=== PATIENT | male | born 1960 | race Caucasian/White ===

== ENCOUNTER 2019-03-27 16:53 | Emergency (ER) | payer OTHER ==
[2019-03-27 17:05] VITALS: RESP 18
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
[2019-03-27 18:06] LABS: Basophils % (A) 0 %; Eosinophils # (A) 0.1 k/uL (0-0.7); Eosinophils % (A) 1 %; HGB 16.1 gm/dL (13.0-17.5); Lymphocytes # (A) 1.5 k/uL (1.0-4.8); Lymphocytes % (A) 22 %; MCH 29.6 pg (25.0-35.0); MCHC 33.6 g/dL (31.0-37.0); MCV 88.1 fL (80.0-100.0); Monocytes # (A) 0.4 k/uL (0-1.0); Monocytes % (A) 5 %; Neutrophils # (A) 4.9 k/uL (1.3-7.7); Neutrophils % (A) 70 %; Platelet Count 147 k/uL (150-450); RBC 5.44 m/uL (4.30-5.90); RDW 12.9 % (11.5-15.5); WBC 7.1 k/uL (3.8-10.6)
[2019-03-27 18:23] LABS: INR 0.9 (<1.2); Partial Thromboplastin Time 25.4 sec (22.0-30.0); Prothrombin Time 9.8 sec (9.0-12.0)
--- NOTE | 2019-03-27 18:23 | XR ---
EXAMINATION TYPE: XR chest 1V portable DATE OF EXAM: 03/27/2019 COMPARISON: 12/14/2015 HISTORY: Pain TECHNIQUE: Single frontal view of the chest is obtained. FINDINGS: Heart and mediastinum are normal. Lungs are clear. Diaphragm is normal. Bony thorax appear s normal. IMPRESSION: Normal chest. No change.
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
--- NOTE | 2019-03-27 18:26 | XR ---
EXAMINATION TYPE: XR hand complete RT DATE OF EXAM: 03/27/2019 COMPARISON: NONE HISTORY: Hand pain TECHNIQUE: 3 views FINDINGS: Metacarpals are intact. I see no fracture nor dislocation. Joint spaces are normal. IMPRESSION: Negative right hand exam.
[2019-03-27 18:27] LABS: ALT 48 U/L (21-72); AST 37 U/L (17-59); Albumin 4.1 g/dL (3.5-5.0); Alcohol <10 mg/dL; Alkaline Phosphatase 59 U/L (38-126); Anion Gap 8 mmol/L; Blood Urea Nitrogen 20 mg/dL (9-20); Calcium 9.6 mg/dL (8.4-10.2); Carbon Dioxide 23 mmol/L (22-30); Chloride 109 mmol/L (98-107); Glucose 114 mg/dL (74-99); Lipase 258 U/L (23-300); Potassium 4.4 mmol/L (3.5-5.1); Sodium 140 mmol/L (137-145); Total Bilirubin 0.6 mg/dL (0.2-1.3); Total Protein 6.9 g/dL (6.3-8.2)
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
--- NOTE | 2019-03-27 18:37 | XR ---
EXAMINATION TYPE: XR pelvis AP view DATE OF EXAM: 03/27/2019 COMPARISON: NONE HISTORY: Pain TECHNIQUE: Single view FINDINGS: The pelvic ring is intact. Proximal femurs are intact. There is contrast in the urinary cisco dder. Sacroiliac joints appear intact. IMPRESSION: Normal pelvis.
--- NOTE | 2019-03-27 18:38 | XR ---
EXAMINATION TYPE: XR knee complete LT DATE OF EXAM: 03/27/2019 COMPARISON: NONE HISTORY: Knee pain TECHNIQUE: 3 views FINDINGS: I see no fracture nor dislocation. Joint spaces are normal. There is no sign of joint effus ion. IMPRESSION: Negative left knee exam.
[2019-03-27 19:48] VITALS: BP 131/81; PULSE 70; TEMP 98.6
== END 2019-03-27 19:47 | disposition home or self-care (01) ==
LOC: EC 16:53
DX: Z04.1 Encounter for examination and observation following transport accident (principal); N28.89 Other specified disorders of kidney and ureter; E11.9 Type 2 diabetes mellitus without complications; E78.5 Hyperlipidemia, unspecified; I10 Essential (primary) hypertension; M19.90 Unspecified osteoarthritis, unspecified site; N42.9 Disorder of prostate, unspecified; Z87.891 Personal history of nicotine dependence; Z79.84 Long term (current) use of oral hypoglycemic drugs; Z79.899 Other long term (current) drug therapy; Z88.0 Allergy status to penicillin; Z88.2 Allergy status to sulfonamides; V43.52XA Car driver injured in collision with other type car in traffic accident, initial encounter; Y92.410 Unspecified street and highway as the place of occurrence of the external cause
CPT/HCPCS: 36415; 86900; 86901; 80053; 83690; 84484; 85025; 85610; 85730; 86850; 80320; 72170; 73130; 73562; 71045; 72125; 70450; 71260; 74177; 99284; Q9967

== ENCOUNTER 2019-04-16 11:41 | Inpatient (IN) | payer OTHER ==
[2019-04-16] MEDS ORDERED: SODIUM CHLORIDE 0.9% 1,000 ML IV STA ×2 (11:53)
--- NOTE | 2019-04-16 11:54 | ED ---
Neuro HPI - General Chief Complaint: Neuro Symptoms/Deficit Stated Complaint: Confused Time Seen by Provider: 04/16/19 11:53 Source: patient, RN notes reviewed, old records reviewed Mode of arrival: ambulatory Limitations: no limitations - History of Present Illness Is the patient presenting with stroke symptoms?: Yes Last Known Well Date: 04/16/19 Last Known Well Time: 07:00 -: hour(s) (5) Location: speech, right arm Place: work Severity: severe Quality: other (Worsening) Improves With: none Worsens With: time On Anticoagulants: No Context: sudden onset (Worsening) Associated Symptoms: denies other symptoms Treatments Prior to Arrival: none - Related Data Home Medications: Home Medications Medication Instructions Recorded Confirmed Allopurinol [Zyloprim] 100 mg PO DAILY 06/17/16 04/16/19 Cholecalciferol [Vitamin D3 (25 5,000 unit PO HS 06/17/16 04/16/19 Mcg = 1000 Iu)] Montelukast [Singulair] 10 mg PO HS 06/17/16 04/16/19 Lisinopril-Hctz 20-12.5 mg 1 tab PO HS 03/27/19 04/16/19 [Zestoretic 20-12.5] Lovastatin [Mevacor] 40 mg PO DAILY 03/27/19 04/16/19 glipiZIDE [Glucotrol] 10 mg PO TID 03/27/19 04/16/19 Naproxen Sodium [Aleve] 220 mg PO BID PRN 04/16/19 04/16/19 Vortioxetine Hydrobromide 10 mg PO DAILY 04/16/19 04/16/19 [Trintellix] Allergies/Adverse Reactions: Allergies Allergy/AdvReac Type Severity Reaction Status Date / Time Penicillins Allergy Anaphylaxis Verified 04/16/19 12:18 Sulfa (Sulfonamide Allergy Swelling Verified 04/16/19 12:18 Antibiotics) Review of Systems ROS Statement: Those systems with pertinent positive or pertinent negative responses have been documented in the HPI. ROS Other: All systems not noted in ROS Statement are negative. General Exam Limitations: no limitations Stroke MDM - Lab Data Result diagrams: 04/16/19 12:13 04/16/19 12:13 Lab Results 04/16/19 04/16/19 04/16/19 Range/Units 12:13 12:13 12:13 WBC 7.7 (3.8-10.6) k/uL RBC 5.49 (4.30-5.90) m/uL Hgb 16.0 (13.0-17.5) gm/dL Hct 48.3 (39.0-53.0) % MCV 88.0 (80.0-100.0) fL MCH 29.2 (25.0-35.0) pg MCHC 33.2 (31.0-37.0) g/dL RDW 13.7 (11.5-15.5) % Plt Count 150 (150-450) k/uL Neutrophils % 61 % Lymphocytes % 30 % Monocytes % 5 % Eosinophils % 2 % Basophils % 1 % Neutrophils # 4.7 (1.3-7.7) k/uL Lymphocytes # 2.3 (1.0-4.8) k/uL Monocytes # 0.4 (0-1.0) k/uL Eosinophils # 0.1 (0-0.7) k/uL Basophils # 0.0 (0-0.2) k/uL PT (9.0-12.0) sec INR (<1.2) APTT (22.0-30.0) sec Sodium 140 (137-145) mmol/L Potassium 4.3 (3.5-5.1) mmol/L Chloride 108 H (98-107) mmol/L Carbon Dioxide 27 (22-30) mmol/L Anion Gap 5 mmol/L BUN 20 (9-20) mg/dL Creatinine 0.81 (0.66-1.25) mg/dL Est GFR (CKD-EPI)AfAm >90 (>60 ml/min/1.73 sqM) Est GFR (CKD-EPI)NonAf >90 (>60 ml/min/1.73 sqM) Glucose 97 (74-99) mg/dL POC Glucose (mg/dL) (75-99) mg/dL POC Glu Engineer Technician ID Calcium 9.4 (8.4-10.2) mg/dL Total Bilirubin 0.6 (0.2-1.3) mg/dL AST 56 (17-59) U/L ALT 58 (21-72) U/L Alkaline Phosphatase 65 (38-126) U/L Total Creatine Kinase 507 H (55-170) U/L CK-MB (CK-2) 9.1 H (0.0-2.4) ng/mL CK-MB (CK-2) Rel Index 1.8 Troponin I <0.012 (0.000-0.034) ng/mL Total Protein 7.0 (6.3-8.2) g/dL Albumin 4.2 (3.5-5.0) g/dL 04/16/19 04/16/19 Range/Units 12:13 12:15 WBC (3.8-10.6) k/uL RBC (4.30-5.90) m/uL Hgb (13.0-17.5) gm/dL Hct (39.0-53.0) % MCV (80.0-100.0) fL MCH (25.0-35.0) pg MCHC (31.0-37.0) g/dL RDW (11.5-15.5) % Plt Count (150-450) k/uL Neutrophils % % Lymphocytes % % Monocytes % % Eosinophils % % Basophils % % Neutrophils # (1.3-7.7) k/uL Lymphocytes # (1.0-4.8) k/uL Monocytes # (0-1.0) k/uL Eosinophils # (0-0.7) k/uL Basophils # (0-0.2) k/uL PT 9.9 (9.0-12.0) sec INR 0.9 (<1.2) APTT 24.9 (22.0-30.0) sec Sodium (137-145) mmol/L Potassium (3.5-5.1) mmol/L Chloride (98-107) mmol/L Carbon Dioxide (22-30) mmol/L Anion Gap mmol/L BUN (9-20) mg/dL Creatinine (0.66-1.25) mg/dL Est GFR (CKD-EPI)AfAm (>60 ml/min/1.73 sqM) Est GFR (CKD-EPI)NonAf (>60 ml/min/1.73 sqM) Glucose (74-99) mg/dL POC Glucose (mg/dL) 102 H (75-99) mg/dL POC Glu Engineer Technician ID Alvin, Ludmila Calcium (8.4-10.2) mg/dL Total Bilirubin (0.2-1.3) mg/dL AST (17-59) U/L ALT (21-72) U/L Alkaline Phosphatase (38-126) U/L Total Creatine Kinase (55-170) U/L CK-MB (CK-2) (0.0-2.4) ng/mL CK-MB (CK-2) Rel Index Troponin I (0.000-0.034) ng/mL Total Protein (6.3-8.2) g/dL Albumin (3.5-5.0) g/dL - NIH Stroke Scale 1a. Level of Consciousness: (2) not alert, rep stimuli 1b. LOC Questions: (2) answers no questions correctly 1c. LOC Commands: (2) performs no tasks correctly 2. Best Gaze: (0) normal 3. Visual: (0) no visual loss 4. Facial Palsy: (1) minor paralysis 5a. Motor Arm Left: (0) no drift 5b. Motor Arm Right: (3) no gravity effort 6a. Motor Leg Left: (0) no drift 6b. Motor Leg Right: (2) some gravity effort 7. Limb Ataxia: (0) absent 8. Sensory: (0) normal 10. Dysarthria: (0) normal - EKG Data -: EKG Interpreted by Me (EKG shows sinus rhythm rate of 83, NC 154, QRS 90, QTc 427) Past Medical History Past Medical History: Diabetes Mellitus, Hyperlipidemia, Hypertension, Osteoarthritis (OA), Prostate Disorder Additional Past Medical History / Comment(s): takes singulair and dulair daily for reaction to material at work History of Any Multi-Drug Resistant Organisms: None Reported Past Surgical History: Tonsillectomy Additional Past Surgical History / Comment(s): right knee surg, tumor removed from 2nd toe of right foot, Past Anesthesia/Blood Transfusion Reactions: No Reported Reaction Past Psychological History: No Psychological Hx Reported Smoking Status: Former smoker Past Alcohol Use History: Rare Past Drug Use History: None Reported - Past Family History Mother History Unknown: Yes Family Medical History: AFIB, Congestive Heart Failure (CHF), Diabetes Mellitus, Osteoarthritis (OA) Father Family Medical History: AFIB, Hypertension Sister(s) Family Medical History: No Reported History Daughter(s) Family Medical History: No Reported History Son(s) Family Medical History: No Reported History Course Vital Signs 04/16/19 04/16/19 04/16/19 11:47 12:10 12:25 Temperature 97.7 F Pulse Rate 80 81 78 Respiratory 18 18 18 Rate Blood Pressure 137/86 162/94 148/92 O2 Sat by Pulse 96 94 L 97 Oximetry 04/16/19 04/16/19 04/16/19 12:40 12:55 13:10 Temperature Pulse Rate 81 81 77 Respiratory 18 18 18 Rate Blood Pressure 143/89 124/94 134/83 O2 Sat by Pulse 97 98 97 Oximetry 04/16/19 04/16/19 04/16/19 13:25 13:40 13:55 Temperature Pulse Rate 79 76 79 Respiratory 18 18 18 Rate Blood Pressure 125/83 139/80 143/83 O2 Sat by Pulse 97 97 97 Oximetry 04/16/19 14:10 Temperature Pulse Rate 77 Respiratory 18 Rate Blood Pressure 118/77 O2 Sat by Pulse 98 Oximetry - Reevaluation(s) Reevaluation #1: [id number] This code stroke was paged on patient arrival, patient outside window for TPA secondary to 5 hours of onset, patient was evaluated by neuro interventional last regarding possibility for thrombectomy, again remains no TPA candidate no thrombus for intervention 04/16/19 14:42 Medical record is reviewed 04/16/19 14:42 Reevaluation #2: 04/16/19 14:42 Patient still showing no improvement and neurological function Critical Care Time Critical Care Time: Yes Total Critical Care Time: 31 Disposition Clinical Impression: Cerebrovascular accident Disposition: ADMITTED IP TO THIS [facility] Condition: Serious Is patient prescribed a controlled substance at d/c from ED?: No Referrals: Reza Tavera DO [Primary Care Provider] - 1-2 days
[2019-04-16 12:30] LABS: Basophils % (A) 1 %; Eosinophils # (A) 0.1 k/uL (0-0.7); Eosinophils % (A) 2 %; HCT 48.3 % (39.0-53.0); Lymphocytes # (A) 2.3 k/uL (1.0-4.8); Lymphocytes % (A) 30 %; MCH 29.2 pg (25.0-35.0); MCHC 33.2 g/dL (31.0-37.0); Mean Platelet Volume 8.5; Monocytes # (A) 0.4 k/uL (0-1.0); Monocytes % (A) 5 %; Neutrophils # (A) 4.7 k/uL (1.3-7.7); Neutrophils % (A) 61 %; Platelet Count 150 k/uL (150-450); RBC 5.49 m/uL (4.30-5.90); RDW 13.7 % (11.5-15.5); WBC 7.7 k/uL (3.8-10.6)
--- NOTE | 2019-04-16 12:34 | CT ---
EXAMINATION TYPE: CT brain wo con for TPA DATE OF EXAM: 04/16/2019 COMPARISON: 03/27/2019 HISTORY: Confusion, difficulty with speech. Unenhanced CT of the brain was performed. The ventricles, basal cisterns and sulci overlying the cerebral convexities demonstrate mild enlargem ent. There is no evidence for intracranial hemorrhage or sulcal effacement. There is decreased attenuation about the periventricular white matter and deep white matter of both c erebral hemispheres, compatible with chronic small vessel ischemia. Differential diagnosis does inclu de demyelination. No mass effects are seen.No midline shift. Osseous calvarium is intact. If symptoms persist consider MRI. IMPRESSION: 1. Age related atrophic and chronic small vessel ischemic change without acute intracranial process s een at this time.
[2019-04-16 12:35] LABS: Glucose,Whole Blood 102 mg/dL (75-99)
[2019-04-16 12:38] LABS: INR 0.9 (<1.2); Partial Thromboplastin Time 24.9 sec (22.0-30.0); Prothrombin Time 9.9 sec (9.0-12.0)
[2019-04-16 12:45] LABS: ALT 58 U/L (21-72); AST 56 U/L (17-59); Albumin 4.2 g/dL (3.5-5.0); Alkaline Phosphatase 65 U/L (38-126); Anion Gap 5 mmol/L; Blood Urea Nitrogen 20 mg/dL (9-20); Calcium 9.4 mg/dL (8.4-10.2); Carbon Dioxide 27 mmol/L (22-30); Chloride 108 mmol/L (98-107); Glucose 97 mg/dL (74-99); Potassium 4.3 mmol/L (3.5-5.1); Sodium 140 mmol/L (137-145); Total Bilirubin 0.6 mg/dL (0.2-1.3)
[2019-04-16 12:51] LABS: Creatine Kinase 507 U/L (55-170)
--- NOTE | 2019-04-16 12:57 | CT ---
EXAMINATION TYPE: CT angio head neck DATE OF EXAM: 04/16/2019 COMPARISON: None HISTORY: Confusion, difficulty with speech. CT DLP: 2336.7 mGycm CONTRAST: Performed with IV Contrast, patient injected with 50 mL of Isovue 370. Combination Contrast CTA cervical carotids and [place] of [place] CTA cervical carotids with 3-D recons truction Contrast CTA of the cervical carotids was performed 3-D reconstruction imaging obtained at a separate workstation. Right carotid system: Mild plaque is seen of the right common carotid artery. There is mild plaque a lso noted at the carotid bulb and proximal ICA. No significant diameter reduction. ECA is patent. Right vertebral artery appears unremarkable. Left carotid system: Mild plaque is seen of the left common carotid artery. There is mild plaque als o noted at the carotid bulb and proximal ICA. No significant diameter reduction. ECA is patent. Lef t vertebral artery appears unremarkable. IMPRESSION: 1. No significant diameter reduction to account for the patient's symptoms. CTA [place] with 3-D reconstruction Contrast CTA of the [place] was performed 3-D reconstruction imaging obtained at a separate workstation. Extensive artifact limits evaluation. Vertebrobasilar system as well as intracranial portions of the internal carotid arteries and their ma miri tributaries are patent. I do not see evidence for sizable aneurysm or vascular malformation. Pl ease note MRI provides greater sensitivity and specificity. Visualized brain appears grossly unremar kable. IMPRESSION: 1. Limited study however significant abnormality is not appreciated with certainty.
[2019-04-16 13:05] LABS: Creatine Kinase MB 9.1 ng/mL (0.0-2.4); Troponin I <0.012 ng/mL (0.000-0.034)
[2019-04-16] MEDS ORDERED: ASPIRIN 325 MG TAB PO STA (14:39)
--- NOTE | 2019-04-16 16:06 | P.CNNES ---
History of Present Illness Consult date: 04/16/19 Reason for Consult: CVA History of Present Illness: Patient is a 58-year-old right-handed male, who has history of hypertension, diabetes, X tobacco use, does not take any antiplatelet medication, works at midnight, came home at 7 AM and was walking with his father minute 7 AM he started having difficulty speaking. By 8:30 started having problems with confusion, heart time talking. He came home, and did not want to come to the hospital and then he finally decided and he arrived to the hospital at around 11:45 AM. Patient was evaluated in the ER. Stroke neurologist aoc aadc operations staff officer was contacted by ED staff and apparently patient was not a candidate for TPA, as he came outside the window for TPA, as his symptoms have been present for more than 4.5 hours. Patient underwent CTA of head and neck, which revealed no large vessel occlusion. Neuro intervention did not recommend any thrombectomy. Patient's NIH stroke scale was reported as 9. Patient had computed tomography scan of the head which revealed no acute process. Patient CTA of head and neck showed no significant diameter reduction to account for patient's symptoms. Patient's blood test shows normal CBC, PT/PTT, Chem-7. Liver panel is normal. Troponin negative. Patient's hemoglobin A1c 7.4 04/15/2019. Patient does not take any antiplatelet medication. He used to take aspirin but stopped taking it 3 years ago. He has diabetes for 5 years, hypertension. He used to smoke about half to 1 pack per day for around 10 years, quit 4 years ago. He drinks alcohol, wine occasionally. Does not do any drugs. Never had any history of strokes in the past. Review of Systems Complains of mild headache. Some numbness of the right side. Denies any chest pain shortness of breath. No other symptoms. No trauma. Past Medical History Past Medical History: Diabetes Mellitus, Hyperlipidemia, Hypertension, Osteoarthritis (OA), Prostate Disorder Additional Past Medical History / Comment(s): takes singulair and dulair daily for reaction to material at work History of Any Multi-Drug Resistant Organisms: None Reported Past Surgical History: Tonsillectomy Additional Past Surgical History / Comment(s): right knee surg, tumor removed from 2nd toe of right foot, Past Anesthesia/Blood Transfusion Reactions: No Reported Reaction Past Psychological History: No Psychological Hx Reported Smoking Status: Former smoker Past Alcohol Use History: Rare Past Drug Use History: None Reported - Past Family History Mother History Unknown: Yes Family Medical History: AFIB, Congestive Heart Failure (CHF), Diabetes Mellitus, Osteoarthritis (OA) Father Family Medical History: AFIB, Hypertension Sister(s) Family Medical History: No Reported History Daughter(s) Family Medical History: No Reported History Son(s) Family Medical History: No Reported History Medications and Allergies Home Medications Medication Instructions Recorded Confirmed Type Allopurinol [Zyloprim] 100 mg PO DAILY 06/17/16 04/16/19 History Cholecalciferol [Vitamin D3 (25 5,000 unit PO HS 06/17/16 04/16/19 History Mcg = 1000 Iu)] Montelukast [Singulair] 10 mg PO HS 06/17/16 04/16/19 History Lisinopril-Hctz 20-12.5 mg 1 tab PO HS 03/27/19 04/16/19 History [Zestoretic 20-12.5] Lovastatin [Mevacor] 40 mg PO DAILY 03/27/19 04/16/19 History glipiZIDE [Glucotrol] 10 mg PO TID 03/27/19 04/16/19 History Naproxen Sodium [Aleve] 220 mg PO BID PRN 04/16/19 04/16/19 History Vortioxetine Hydrobromide 10 mg PO DAILY 04/16/19 04/16/19 History [Trintellix] Allergies Allergy/AdvReac Type Severity Reaction Status Date / Time Penicillins Allergy Anaphylaxis Verified 04/16/19 12:18 Sulfa (Sulfonamide Allergy Swelling Verified 04/16/19 12:18 Antibiotics) Physical Examination - Vital Signs Vital Signs: Vital Signs Temp Pulse Resp BP Pulse Ox 04/16/19 15:10 79 18 127/77 96 04/16/19 14:40 97.8 F 76 18 111/77 97 04/16/19 14:10 77 18 118/77 98 04/16/19 13:55 79 18 143/83 97 04/16/19 13:40 76 18 139/80 97 04/16/19 13:25 79 18 125/83 97 04/16/19 13:10 77 18 134/83 97 04/16/19 12:55 81 18 124/94 98 04/16/19 12:40 81 18 143/89 97 04/16/19 12:25 78 18 148/92 97 04/16/19 12:10 81 18 162/94 94 L 04/16/19 11:47 97.7 F 80 18 137/86 96 Intake and Output 04/16/19 04/16/19 04/16/19 06:59 14:59 22:59 Other: Weight 117.934 kg On examination patient is a middle aged male, in no distress. He is alert and awake. Patient has some expressive aphagia. His comprehension is ve ry intact. Patient earlier was not able to speak at all, but now has started to speak. He can name pen, glasses, foot, shoe very well. Some hesitancy and some delays. Patient has some difficulty with repetition but was able to perform the task on couple attempts. Speech is fairly clear. On cranial nerve examination his pupils are round and reacting to light visual alvarado are full. He has right facial asymmetry and tongue protrudes the midline. On muscle strength testing he has right pronator drift. The strength is normal on the left side. 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 His strength is slightly decreased in the right ankle dorsiflexion 5-. Reflexes are diminished and plantars downgoing bilaterally. Sensory touch is decreased on the right side of the body including face arm and leg as compared to the left side. He is mildly ataxic for [id number] on the right. Tone and bulk of muscles normal. Results - Laboratory Findings CBC and BMP: 04/16/19 12:13 04/16/19 12:13 Abnormal Lab Findings: Abnormal Labs 04/16/19 04/16/19 04/16/19 12:13 12:13 12:15 Chloride 108 H POC Glucose (mg/dL) 102 H Total Creatine Kinase 507 H CK-MB (CK-2) 9.1 H Assessment and Plan Assessment: * Acute ischemic CVA, left MCA vascular territory, with some expressive aphasia and mild right hemiparesis. CTA of head and neck showed no large vessel disease. Rule out cardioembolic source. Patient not a candidate for TPA or mechanical thrombectomy. * Hypertension * Diabetes * Hyperlipidemia * X tobacco use. Plan: * Patient started on aspirin. We will also add Plavix 75 mg for now. * MRI of the brain to evaluate for stroke localization. * Patient probably needs a cardiac workup including 2-D echo with bubble study. May need transesophageal echocardiogram. * Optimize control of diabetes to target A1c <7.0 * Continue neuro checks. * We will follow clinically.
--- NOTE | 2019-04-16 17:46 | P.HPIM ---
History of Present Illness H&P Date: 04/16/19 Chief Complaint: CVA with right-sided weakness and expression aphasia, type 2 diabetes, hype 58-year-old male morbidly obese one of Dr. 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 Later on found him to have slight difficulty moving his right side patient insisted not to come to the emergency room at this point. Finally made it home and noticed by his girlfriend to have severe expression aphasia and significant weakness on the right side still arguing about coming to [facility] apartment but he wants to rest. Finally patient agreed to come to [facility] from around 11:00 which was over 5 hours has from the time this started. Patient was seen and evaluated continue to have severe expression aphasia and right-sided weakness was not a candidate for TPA at this point. CT of the brain did not show any hemorrhage or bleed lab value did not show major abnormality. Neurology workweek to see the patient schedule an MRI of the brain today and patient was process for testing including echo, carotid ultrasound and his MRI. Patient be admitted to the hospital will consult cardiology as well for possible transesophageal echocardiogram continue neuro exam every 4 hours. Review of Systems CONSTITUTIONAL: Morbidly obese in no acute respiratory distress. EYES: No icterus sclerae, no conjunctivitis. EARS, NOSE, MOUTH, THROAT, and FACE: No sore throat, lymphadenopathy, carotid bruits or deformity. RESPIRATORY: No SOB cough or wheezes. CARDIOVASCULAR: No CP, Palpitation, PND, Orthopnea, or angina. GASTROINTESTINAL: No Abd pain, Nausea or vomiting, no Diarrhea or constipation, No GI Bleed, no distention or masses. GENITOURINARY: Negative for Hematuria or UTI, no kidney stones. INTEGUMENT/BREAST: Negative for any muscular injury with mild osteoarthritis.. HEMATOLOGIC/LYMPHATIC: Negative for bleed or purpura. MUSCULOSKELTAL: Negative for Myalgia, Mild arthralgia NEURLOGICAL: No seizure or syncope positive CVA with right-sided weakness and expression aphasia. BEHAVIORAL/PSYCH: Negative. ENDOCRINE: Negative. Past Medical History Past Medical History: Diabetes Mellitus, Hyperlipidemia, Hypertension, Osteoarthritis (OA), Prostate Disorder Additional Past Medical History / Comment(s): takes singulair and dulair daily for reaction to material at work History of Any Multi-Drug Resistant Organisms: None Reported Past Surgical History: Tonsillectomy Additional Past Surgical History / Comment(s): right knee surg, tumor removed from 2nd toe of right foot, Past Anesthesia/Blood Transfusion Reactions: No Reported Reaction Past Psychological History: No Psychological Hx Reported Smoking Status: Former smoker Past Alcohol Use History: Rare Past Drug Use History: None Reported - Past Family History Mother History Unknown: Yes Family Medical History: AFIB, Congestive Heart Failure (CHF), Diabetes Mellitus, Osteoarthritis (OA) Father Family Medical History: AFIB, Hypertension Sister(s) Family Medical History: No Reported History Daughter(s) Family Medical History: No Reported History Son(s) Family Medical History: No Reported History Medications and Allergies Home Medications Medication Instructions Recorded Confirmed Type Allopurinol [Zyloprim] 100 mg PO DAILY 06/17/16 04/16/19 History Cholecalciferol [Vitamin D3 (25 5,000 unit PO HS 06/17/16 04/16/19 History Mcg = 1000 Iu)] Montelukast [Singulair] 10 mg PO HS 06/17/16 04/16/19 History Lisinopril-Hctz 20-12.5 mg 1 tab PO HS 03/27/19 04/16/19 History [Zestoretic 20-12.5] Lovastatin [Mevacor] 40 mg PO DAILY 03/27/19 04/16/19 History glipiZIDE [Glucotrol] 10 mg PO TID 03/27/19 04/16/19 History Naproxen Sodium [Aleve] 220 mg PO BID PRN 04/16/19 04/16/19 History Vortioxetine Hydrobromide 10 mg PO DAILY 04/16/19 04/16/19 History [Trintellix] Allergies Allergy/AdvReac Type Severity Reaction Status Date / Time Penicillins Allergy Anaphylaxis Verified 04/16/19 12:18 Sulfa (Sulfonamide Allergy Swelling Verified 04/16/19 12:18 Antibiotics) Physical Exam Vitals: Vital Signs Temp Pulse Resp BP Pulse Ox 04/16/19 17:00 97.8 F 65 18 115/78 97 04/16/19 16:30 65 18 129/82 97 04/16/19 16:00 69 18 127/75 97 04/16/19 15:30 75 18 120/77 98 04/16/19 15:10 79 18 127/77 96 04/16/19 14:40 97.8 F 76 18 111/77 97 04/16/19 14:10 77 18 118/77 98 04/16/19 13:55 79 18 143/83 97 04/16/19 13:40 76 18 139/80 97 04/16/19 13:25 79 18 125/83 97 04/16/19 13:10 77 18 134/83 97 04/16/19 12:55 81 18 124/94 98 04/16/19 12:40 81 18 143/89 97 04/16/19 12:25 78 18 148/92 97 04/16/19 12:10 81 18 162/94 94 L 04/16/19 11:47 97.7 F 80 18 137/86 96 Intake and Output 04/16/19 04/16/19 04/16/19 06:59 14:59 22:59 Other: Weight 117.934 kg Results CBC & Chem 7: 04/16/19 12:13 04/16/19 12:13 Labs: Abnormal Lab Results - Last 24 Hours (Table) 04/16/19 04/16/19 04/16/19 Range/Units 12:13 12:13 12:15 Chloride 108 H (98-107) mmol/L POC Glucose (mg/dL) 102 H (75-99) mg/dL Total Creatine Kinase 507 H (55-170) U/L CK-MB (CK-2) 9.1 H (0.0-2.4) ng/mL Thrombosis Risk Factor Assmnt - DVT/VTE Prophylaxis DVT/VTE Prophylaxis: Pharmacologic Prophylaxis ordered, Mechanical Prophylaxis ordered Assessment and Plan Plan: 1 stroke affecting the left mid cerebral artery with significant weakness in the right side along with expression aphasia, patient was seen Neurology, MRI of the brain was schedule, we will continue to watch patient on cardiac monitor technician patient will have echo and carotid echo will be done with bubble study and if still not satisfied with the answer might have been transesophageal echoca rdiogram to exclude any possibility of ASD. 2 severe expression aphasia: From stroke affected the left mid cerebral artery, patient be seen speech continue neuro exam continue dual antiplatelet management and treatment also continue secondary prevention for stroke with statin, better control blood pressure, better control of his blood sugar. Patient will be referred early to speech, physical and occupational therapy also will be seen physiatry for possible inpatient rehab. 3 hypertension: Blood pressure remain well controlled on lisinopril HCT 20/12.5 mg daily and if needed smaller dose of calcium channel josh can be use. 4 type 2 diabetes: On the glipizide lower the dose to 10 mg twice a day continue Accu-Chek with sliding scales coverage and if can benefit from metformin 500 mg twice a day. 5 severe hyperlipidemia: Was switched from pravastatin to atorvastatin 40 mg daily. 6 severe depression: Has been on Trintellix 10 mg at bedtime. 7 high uric acid: With no gout flareup still on allopurinol 100 mg daily. 8 possible arrhythmia with nonsustained as a possibility patient will be on cardiac monitor technician and if needed custodial of cardiac monitor technician should be done to exclude the possibility as a cause of stroke specially if there is no sign of PFO or ASD. 9 GI prophylaxis: Patient be on Pepcid 20 mg daily. 10 DVT prophylaxis: Early mobilization knee-high TEGAN hose and patient is on aspirin and Plavix for now. CODE STATUS: Full code. Admit patient to inpatient status for more than 2 nights.
[2019-04-16 18:01] VITALS: BMI 36.3
[2019-04-16 18:18] LABS: Glucose,Whole Blood 99 mg/dL (75-99)
[2019-04-16] MEDS: CLOPIDOGREL 75 MG TAB PO SCH (18:42)
[2019-04-16] MEDS: glipiZIDE 10 MG TAB PO SCH (18:43)
[2019-04-16] MEDS: SODIUM CHLORIDE 0.9% 1,000 ML IV SCH (18:44)
[2019-04-16] MEDS: MONTELUKAST 10 MG TAB PO SCH (19:53)
[2019-04-16] MEDS: ATORVASTATIN 80 MG TAB PO SCH (19:53)
[2019-04-16] MEDS: CHOLECALCIFEROL 1,000 UNIT TAB PO SCH (19:53)
[2019-04-16 20:33] LABS: Glucose,Whole Blood 139 mg/dL (75-99)
[2019-04-16] MEDS: LISINOPRIL-HCTZ 20-12.5 MG 1 EACH TAB PO SCH (21:23)
[2019-04-17] MEDS: SODIUM CHLORIDE 0.9% 1,000 ML IV SCH ×2 (00:45→09:16)
[2019-04-17 03:44] LABS: Cholesterol 164 mg/dL (<200); HDL Cholesterol 35 mg/dL (40-60); LDL Cholesterol,Calculated 100 mg/dL (0-99); Triglycerides 147 mg/dL (<150)
[2019-04-17] MEDS: glipiZIDE 10 MG TAB PO SCH ×2 (06:45→17:29)
[2019-04-17] MEDS: PANTOPRAZOLE 40 MG TABLET PO SCH (06:45)
[2019-04-17 07:09] LABS: Glucose,Whole Blood 138 mg/dL (75-99)
[2019-04-17] MEDS: CLOPIDOGREL 75 MG TAB PO SCH (09:16)
[2019-04-17] MEDS: ASPIRIN 325 MG TAB PO SCH (09:16)
[2019-04-17] MEDS: VORTIOXETINE HYDROBROMIDE 10 MG TABLET PO SCH (09:16)
[2019-04-17] MEDS: ALLOPURINOL 100 MG TAB PO SCH (09:16)
--- NOTE | 2019-04-17 09:29 | P.CRDCN ---
History of Present Illness Consult date: 04/17/19 Chief complaint: Right-sided weakness History of present illness: This is a pleasant 58-year-old gentleman with a past medical history significant for diabetes, hypertension, and dyslipidemia, who states that he does follow with Dr. Rutledge N the office as an outpatient, was admitted to the hospital with stroke. 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 He was trying to find the [place] but he was making multiple mistakes and choosing different warts. Beside that he noticed difficulty moving his right side including the right arm and right leg. Initially the patient was reluctant to come to the hospital finally he decided to come to the hospital. The working diagnosis was a stroke. The patient un derwent a computed tomography scan of the brain which did not show any acute abnormalities. He underwent a CTA which was technically very difficult but there is no obvious abnormalities noted. The EKG showed sinus mechanism. The patient did not have any cardiac arrhythmia during his hospitalization. He does not recall having any symptoms of chest pain or chest discomfort, difficulty breathing, or feeling of heart racing or heart fluttering. He is not aware of any history of cardiac arrhythmia including atrial fibrillation and at home he is not on any oral anticoagulation. We requested to see the patient for possible need for transesophageal echocardiogram. Unfortunately the patient di dn't eat this morning but I would plan to pursue with a KEYONNA tomorrow morning. Past Medical History Past Medical History: Diabetes Mellitus, Hyperlipidemia, Hypertension, Osteoarthritis (OA) Additional Past Medical History / Comment(s): takes singulair and dulair daily for reaction to material at work History of Any Multi-Drug Resistant Organisms: None Reported Past Surgical History: Tonsillectomy Additional Past Surgical History / Comment(s): right knee surg, tumor removed from 2nd toe of right foot, Past Anesthesia/Blood Transfusion Reactions: No Reported Reaction Smoking Status: Former smoker - Past Family History Mother History Unknown: Yes Family Medical History: AFIB, Congestive Heart Failure (CHF), Diabetes Mellitus, Osteoarthritis (OA) Father Family Medical History: AFIB, Hypertension Sister(s) Family Medical History: No Reported History Daughter(s) Family Medical History: No Reported History Son(s) Family Medical History: No Reported History Medications and Allergies Home Medications Medication Instructions Recorded Confirmed Type Allopurinol [Zyloprim] 100 mg PO DAILY 06/17/16 04/16/19 History Cholecalciferol [Vitamin D3 (25 5,000 unit PO HS 06/17/16 04/16/19 History Mcg = 1000 Iu)] Montelukast [Singulair] 10 mg PO HS 06/17/16 04/16/19 History Lisinopril-Hctz 20-12.5 mg 1 tab PO HS 03/27/19 04/16/19 History [Zestoretic 20-12.5] Lovastatin [Mevacor] 40 mg PO DAILY 03/27/19 04/16/19 History glipiZIDE [Glucotrol] 10 mg PO TID 03/27/19 04/16/19 History Naproxen Sodium [Aleve] 220 mg PO BID PRN 04/16/19 04/16/19 History Vortioxetine Hydrobromide 10 mg PO DAILY 04/16/19 04/16/19 History [Trintellix] Allergies Allergy/AdvReac Type Severity Reaction Status Date / Time Penicillins Allergy Anaphylaxis Verified 04/16/19 12:18 Sulfa (Sulfonamide Allergy Swelling Verified 04/16/19 12:18 Antibiotics) Physical Exam Vitals: Vital Signs Temp Pulse Pulse Resp BP BP Pulse Ox 04/17/19 03:30 65 16 04/17/19 03:21 97.8 F 65 16 116/70 94 L 04/16/19 23:42 73 16 129/75 97 04/16/19 19:40 98.1 F 79 16 132/82 95 04/16/19 17:53 97.6 F 66 20 135/83 94 L 04/16/19 17:00 97.8 F 65 18 115/78 97 04/16/19 16:30 65 18 129/82 97 04/16/19 16:00 69 18 127/75 97 04/16/19 15:30 75 18 120/77 98 04/16/19 15:10 79 18 127/77 96 04/16/19 14:40 97.8 F 76 18 111/77 97 04/16/19 14:10 77 18 118/77 98 04/16/19 13:55 79 18 143/83 97 04/16/19 13:40 76 18 139/80 97 04/16/19 13:25 79 18 125/83 97 04/16/19 13:10 77 18 134/83 97 04/16/19 12:55 81 18 124/94 98 04/16/19 12:40 81 18 143/89 97 04/16/19 12:25 78 18 148/92 97 04/16/19 12:10 81 18 162/94 94 L 04/16/19 11:47 97.7 F 80 18 137/86 96 Intake and Output 04/16/19 04/17/19 04/17/19 22:59 06:59 14:59 Intake Total 200 240 Output Total 600 Balance 200 -600 240 Intake: Intake, IV Titration 200 Amount Sodium Chloride 0.9% 1, 200 000 ml @ 100 mls/hr IV . Q10H [facility] Rx#:[id number] Oral 240 Output: Urine 600 Other: Voiding Method Toilet Toilet # Voids 1 Weight 120.1 kg - Constitutional General appearance: no acute distress - Respiratory Respiratory: bilateral: CTA - Cardiovascular Rhythm: regular Heart sounds: normal: S1, S2 Abnormal Heart Sounds: systolic murmur Results 04/16/19 12:13 04/16/19 12:13 Cardiac Enzymes 04/16/19 04/16/19 Range/Units 12:13 12:13 AST 56 (17-59) U/L CK-MB (CK-2) 9.1 H (0.0-2.4) ng/mL Troponin I <0.012 (0.000-0.034) ng/mL Coagulation 04/16/19 Range/Units 12:13 PT 9.9 (9.0-12.0) sec APTT 24.9 (22.0-30.0) sec Lipids 04/16/19 Range/Units 13:34 Triglycerides 147 (<150) mg/dL Cholesterol 164 (<200) mg/dL HDL Cholesterol 35 L (40-60) mg/dL CBC 04/16/19 Range/Units 12:13 WBC 7.7 (3.8-10.6) k/uL RBC 5.49 (4.30-5.90) m/uL Hgb 16.0 (13.0-17.5) gm/dL Hct 48.3 (39.0-53.0) % Plt Count 150 (150-450) k/uL Comprehensive Metabolic Panel 04/16/19 Range/Units 12:13 Sodium 140 (137-145) mmol/L Potassium 4.3 (3.5-5.1) mmol/L Chloride 108 H (98-107) mmol/L Carbon Dioxide 27 (22-30) mmol/L BUN 20 (9-20) mg/dL Creatinine 0.81 (0.66-1.25) mg/dL Glucose 97 (74-99) mg/dL Calcium 9.4 (8.4-10.2) mg/dL AST 56 (17-59) U/L ALT 58 (21-72) U/L Alkaline Phosphatase 65 (38-126) U/L Total Protein 7.0 (6.3-8.2) g/dL Albumin 4.2 (3.5-5.0) g/dL Current Medications Generic Name Dose Route Start Last Admin Trade Name Freq PRN Reason Stop Dose Admin Allopurinol 100 mg 04/17/19 09:00 04/17/19 09:16 Zyloprim PO 100 mg DAILY SARA Administration Aspirin 325 mg 04/17/19 14:41 04/17/19 09:16 Aspirin PO 325 mg DAILY SARA Administration Atorvastatin Calcium 80 mg 04/16/19 21:00 04/16/19 19:53 Lipitor PO 80 mg HS SARA Administration Cholecalciferol 5,000 unit 04/16/19 21:00 04/16/19 19:53 Vitamin D3 (25 Mcg = 1000 Iu) PO 5,000 unit HS SARA Administration Clopidogrel Bisulfate 75 mg 04/16/19 16:15 04/17/19 09:16 Plavix PO 75 mg DAILY SARA Administration Glipizide 10 mg 04/16/19 17:30 04/17/19 06:45 Glucotrol PO 10 mg AC-BID SARA Administration Lisinopril/HCTZ 1 each 04/16/19 21:00 04/16/19 21:23 Zestoretic 20-12.5 PO 1 each HS SARA Administration Sodium Chloride 1,000 mls @ 100 mls/hr 04/16/19 14:45 04/17/19 09:16 Saline 0.9% IV 100 mls/hr .Q10H SARA Administration Montelukast Sodium 10 mg 04/16/19 21:00 04/16/19 19:53 Singulair PO 10 mg HS SARA Administration Pantoprazole Sodium 40 mg 04/17/19 07:30 04/17/19 06:45 Protonix PO 40 mg [id number] SARA Administration Vortioxetine 10 mg 04/17/19 09:00 04/17/19 09:16 Trintellix PO 10 mg DAILY SARA Administration Intake and Output 04/16/19 04/17/19 04/17/19 22:59 06:59 14:59 Intake Total 200 240 Output Total 600 Balance 200 -600 240 Intake: Intake, IV Titration 200 Amount Sodium Chloride 0.9% 1, 200 000 ml @ 100 mls/hr IV . Q10H [facility] Rx#:[id number] Oral 240 Output: Urine 600 Other: Voiding Method Toilet Toilet # Voids 1 Weight 120.1 kg 04/16/19 12:13 04/16/19 12:13 Assessment and Plan Assessment: Assessment #1 stroke with expressive aphasia and right-sided weakness #2 diabetes type 2 #3 hypertension #4 dyslipidemia Plan #1 he is on dual antiplatelet therapy as well as statin #2 I was scheduled the patient to undergo a KEYONNA tomorrow. Thank you for allowing us participate in his care and we will continue following up with the patient
[2019-04-17 11:54] LABS: Glucose,Whole Blood 136 mg/dL (75-99)
--- NOTE | 2019-04-17 13:38 | P.PN ---
Subjective Progress Note Date: 04/17/19 58-year-old male morbidly obese one of Dr. 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 Later on found him to have slight difficulty moving his right side patient insisted not to come to the emergency room at this point. Finally made it home and noticed by his girlfriend to have severe expression aphasia and significant weakness on the right side still arguing about coming to [facility] apartment but he wants to rest. Finally patient agreed to come to [facility] from around 11:00 which was over 5 hours has from the time this started. Patient was seen and evaluated continue to have severe expression aphasia and right-sided weakness was not a candidate for TPA at this point. CT of the brain did not show any hemorrhage or bleed lab value did not show major abnormality. Neurology workweek to see the patient schedule an MRI of the brain today and patient was process for testing including echo, carotid ultrasound and his MRI. Patient be admitted to the hospital will consult cardiology as well for possible transesophageal echocardiogram continue neuro exam every 4 hours. 04/17: Patient is sitting up in a chair in no apparent distress today he denies any chest pain or shortness breath, his admitting around, is scheduled to go for ultrasound of the carotid as well as echocardiogram her on today, he is currently on Plavix 75 mg orally once every day as well as baby aspirin 81 mg once every day, he was seen in consultation by neurology, he would be seen in consultation by cardiology for possible KEYONNA. Review of Systems CONSTITUTIONAL: Morbidly obese in no acute respiratory distress. EYES: No icterus sclerae, no conjunctivitis. EARS, NOSE, MOUTH, THROAT, and FACE: No sore throat, lymphadenopathy, carotid bruits or deformity. RESPIRATORY: No SOB cough or wheezes. CARDIOVASCULAR: No CP, Palpitation, PND, Orthopnea, or angina. GASTROINTESTINAL: No Abd pain, Nausea or vomiting, no Diarrhea or constipation, No GI Bleed, no distention or masses. GENITOURINARY: Negative for Hematuria or UTI, no kidney stones. INTEGUMENT/BREAST: Negative for any muscular injury with mild osteoarthritis.. HEMATOLOGIC/LYMPHATIC: Negative for bleed or purpura. MUSCULOSKELTAL: Negative for Myalgia, Mild arthralgia NEURLOGICAL: No seizure or syncope positive CVA with right-sided weakness and expression aphasia. BEHAVIORAL/PSYCH: Negative. ENDOCRINE: Negative. Objective - Vital Signs Vital signs: Vital Signs Temp 97.8 F 04/17/19 03:21 Pulse 65 04/17/19 03:30 Resp 16 04/17/19 03:30 BP 116/70 04/17/19 03:21 Pulse Ox 94 L 04/17/19 03:21 Intake & Output 04/16/19 04/17/19 04/17/19 18:59 06:59 18:59 Intake Total 200 240 Output Total 600 Balance 200 -600 240 Weight 117.934 kg 120.1 kg Intake: Intake, IV Titration 200 Amount Sodium Chloride 0.9% 1, 200 000 ml @ 100 mls/hr IV . Q10H SARA Rx#:[id number] Oral 240 Output: Urine 600 Other: Voiding Method Toilet # Voids 1 - Exam HEENT: Head is atraumatic, normocephalic, pupils were equal round reactive to light and accommodation extraocular muscle movement were intact, mucous membranes of the mouth are somewhat dry. Neck: Supple, no JVP, no carotid bruit lymphadenopathy. Chest: Decreased breath sounds at the bases, few rhonchi, no expiratory wheezes, no chest or tenderness, no intercostal retractions. Heart: First heart sound is depressed, second heart sounds normal, there is no gallop or murmur, no rubs or heaves. Abdomen: Soft, nontender, nondistended, positive bowel sounds. Neurologic: Patient is awake alert and oriented 3, cranial nerves III-12 appear grossly intact, minimal right-sided weakness and minimal expressive aphasia that has improved. - Labs CBC & Chem 7: 04/16/19 12:13 04/16/19 12:13 Labs: Abnormal Lab Results - Last 24 Hours (Table) 04/16/19 04/16/19 04/16/19 Range/Units 12:13 12:13 12:15 Chloride 108 H (98-107) mmol/L POC Glucose (mg/dL) 102 H (75-99) mg/dL Total Creatine Kinase 507 H (55-170) U/L CK-MB (CK-2) 9.1 H (0.0-2.4) ng/mL LDL Cholesterol, Calc (0-99) mg/dL HDL Cholesterol (40-60) mg/dL 04/16/19 04/16/19 04/17/19 Range/Units 13:34 20:31 06:56 Chloride (98-107) mmol/L POC Glucose (mg/dL) 139 H 138 H (75-99) mg/dL Total Creatine Kinase (55-170) U/L CK-MB (CK-2) (0.0-2.4) ng/mL LDL Cholesterol, Calc 100 H (0-99) mg/dL HDL Cholesterol 35 L (40-60) mg/dL Assessment and Plan Assessment: Assessment and Plan Plan: 1 stroke affecting the left mid cerebral artery with significant weakness in the right side along with expression aphasia, patient was seen Neurology, MRI of the brain was schedule, we will continue to watch patient on telephone engineer patient will have echo and carotid echo will be done with bubble study and if still not satisfied with the answer might have been transesophageal echocardiogram to exclude any possibility of ASD. 2 severe expression aphasia: From stroke affected the left mid cerebral artery, patient be seen speech continue neuro exam continue dual antiplatelet management and treatment also continue secondary prevention for stroke with statin, better control blood pressure, better control of his blood sugar. Patient will be referred early to speech, physical and occupational therapy also will be seen physiatry for possible inpatient rehab. 3 hypertension: Blood pressure remain well controlled on lisinopril HCT 20/12.5 mg daily and if needed smaller dose of calcium channel josh can be use. 4 type 2 diabetes: On the glipizide lower the dose to 10 mg twice a day continue Accu-Chek with sliding scales coverage and if can benefit from metformin 500 mg twice a day. 5 severe hyperlipidemia: Was switched from pravastatin to atorvastatin 40 mg daily. 6 severe depression: Has been on Trintellix 10 mg at bedtime. 7 high uric acid: With no gout flareup still on allopurinol 100 mg daily. 8 possible arrhythmia with nonsustained as a possibility patient will be on telephone engineer and if needed rat exterminator of telephone engineer should be done to exclude the possibility as a cause of stroke specially if there is no sign of PFO or ASD. 9 GI prophylaxis: Patient be on Pepcid 20 mg daily. 10 DVT prophylaxis: Early mobilization knee-high TEGAN hose and patient is on aspirin and Plavix for now. CODE STATUS: Full code.
--- NOTE | 2019-04-17 13:52 | MR ---
EXAMINATION TYPE: MR brain wo/w con DATE OF EXAM: 04/17/2019 COMPARISON: Prior CT brain 04/16/2019 HISTORY: CVA TECHNIQUE: Multiplanar, multisequence images of the brain and brainstem is performed without and with IV contras t, utilizing 12ml mL intravenous Gadavist . FINDINGS: Diffusion weighted images demonstrate restricted diffusion in the basal ganglia on the left , there is corresponding signal abnormality on T1, T2 and inversion recovery sequences. There is no extra-axial fluid collection,, some scattered hyperintensities on inversion recovery and T2-weighted sequences within the white matter, approximately 10 lesions, largest measures approximately 5 mm in a xial image 19 adjacent to the posterior horn right lateral ventricle. The ventricular system and cis ternal spaces are normal in size and appearance. The brain volume is age appropriate. Midline structures demonstrate normal morphology. The craniocervical junction appears within normal limits. Post contrast images demonstrate no abnormal enhancement. The dural venous sinuses appear pa tent. The visualized sinuses are remarkable for mild inflammatory change in the ethmoid air cells and some inflammatory change in the right mastoid air cells and the globes are intact. IMPRESSION: Cerebral vascular accident involving the basal ganglia on the left, additional findings a chloe
[2019-04-17 16:52] LABS: Glucose,Whole Blood 105 mg/dL (75-99)
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
[2019-04-17] MEDS: CHOLECALCIFEROL 1,000 UNIT TAB PO SCH (20:15)
[2019-04-17] MEDS: LISINOPRIL-HCTZ 20-12.5 MG 1 EACH TAB PO SCH (20:15)
[2019-04-17] MEDS: ATORVASTATIN 80 MG TAB PO SCH (20:16)
[2019-04-17] MEDS: MONTELUKAST 10 MG TAB PO SCH (20:16)
[2019-04-17 20:50] LABS: Glucose,Whole Blood 195 mg/dL (75-99)
[2019-04-17] MEDS ORDERED: ACETAMINOPHEN TAB 325 MG TAB PO PRN (20:50)
[2019-04-18 06:16] LABS: Basophils % (A) 0 %; Eosinophils # (A) 0.1 k/uL (0-0.7); Eosinophils % (A) 2 %; HCT 49.2 % (39.0-53.0); HGB 16.1 gm/dL (13.0-17.5); Lymphocytes # (A) 1.5 k/uL (1.0-4.8); Lymphocytes % (A) 19 %; MCHC 32.8 g/dL (31.0-37.0); MCV 88.7 fL (80.0-100.0); Monocytes # (A) 0.5 k/uL (0-1.0); Monocytes % (A) 7 %; Neutrophils # (A) 5.3 k/uL (1.3-7.7); Neutrophils % (A) 70 %; Platelet Count 140 k/uL (150-450); RBC 5.55 m/uL (4.30-5.90); RDW 13.7 % (11.5-15.5); WBC 7.5 k/uL (3.8-10.6)
[2019-04-18 06:21] LABS: Glucose,Whole Blood 152 mg/dL (75-99)
[2019-04-18 06:29] LABS: ALT 43 U/L (21-72); AST 32 U/L (17-59); Albumin 3.7 g/dL (3.5-5.0); Alkaline Phosphatase 56 U/L (38-126); Anion Gap 5 mmol/L; Blood Urea Nitrogen 16 mg/dL (9-20); Calcium 9.1 mg/dL (8.4-10.2); Carbon Dioxide 26 mmol/L (22-30); Chloride 108 mmol/L (98-107); Glucose 159 mg/dL (74-99); Potassium 4.2 mmol/L (3.5-5.1); Sodium 139 mmol/L (137-145); Total Bilirubin 0.7 mg/dL (0.2-1.3); Total Protein 6.3 g/dL (6.3-8.2)
[2019-04-18] MEDS ORDERED: fentaNYL (PF) 50 MCG/ML 2 ML AMP ONE (07:44)
[2019-04-18] MEDS ORDERED: IV FLUID CONTINUATION 1,000 ML IV ONE (07:55)
[2019-04-18] MEDS ORDERED: BENZOCAINE SPRAY 1 CAN MUCOUS MEM ONE ×2 (08:18→08:22)
[2019-04-18] MEDS ORDERED: fentaNYL (PF) 50 MCG/ML 2 ML AMP IVP ONE (08:22)
[2019-04-18] MEDS ORDERED: MIDAZOLAM (PF) 2 MG/2 ML VIAL IVP ONE (08:22)
[2019-04-18] MEDS ORDERED: MIDAZOLAM (PF) 2 MG/2 ML VIAL IV ONE (08:24)
--- NOTE | 2019-04-18 09:28 | ECHOT ---
TRANSESOPHAGEAL ECHOCARDIOGRAM DATE OF SERVICE: April 16, 2019 PERFORMING PHYSICIAN: To Fried MD, spa experience coordinator. PROCEDURE PERFORMED: Transesophageal echocardiogram. INDICATION: This is a 58-year-old gentleman who was admitted to the hospital with a stroke and a KEYONNA is to rule out any cardiac source of embolization. COMPLICATION: None. LEVEL OF SEDATION: Moderate with sedation length of 15 minutes. PROCEDURE DESCRIPTION: After obtaining an informed consent, explaining the procedure, benefits, risks, complications and alternatives, the patient was brought to the transesophageal echocardiogram suite. A pulse oximetry and heart rate monitors were attached to the patient prior to the procedure. The patient's throat was sprayed using lidocaine locally. Following that, the patient was turned into left lateral position. A bite guard was placed and the patient was then sedated with the above doses of Versed and fentanyl in divided doses. Following that, the transesophageal echocardiogram probe was advanced through the bite guard into the mid esophagus where 2-D echocardiogram images as well as color Doppler images of various cardiac structures were obtained. We evaluated the interatrial septum using 2-D echocardiogram, color Doppler, and contrast study. The procedure was completed. There were no complications. FINDINGS: The left ventricular dimension and systolic function appeared to be within normal limits with an ejection fraction of 50% to 55%. Right ventricle appeared to be of normal size and function. The left atrium appeared to be within normal limits for dimension. The aortic valve is trileaflet valve without stenosis or regurgitation. The mitral valve seems to be normal with mild MR. Normal tricuspid valve and pulmonic valve seen. The interatrial septum appeared to be intact without any evidence of shunt. Left atrial appendage appeared to be free from any thrombus. CONCLUSION: 1. There is no evidence of cardiac source of embolization. 2. Intact interatrial septum without any evidence of shunt. 3. Normal left atrial appendage without any thrombus. 4. Normal left ventricular dimension and systolic function. 5. Normal cardiac chamber sizes. 6. Normal intracardiac valves. 7. No evidence of pericardial effusion. MMODL / IJN: [id number] /
[2019-04-18] MEDS: ALLOPURINOL 100 MG TAB PO SCH (10:44)
[2019-04-18] MEDS: CLOPIDOGREL 75 MG TAB PO SCH (10:44)
[2019-04-18] MEDS: PANTOPRAZOLE 40 MG TABLET PO SCH (10:44)
[2019-04-18] MEDS: glipiZIDE 10 MG TAB PO SCH ×2 (10:44→17:25)
[2019-04-18] MEDS: ASPIRIN 325 MG TAB PO SCH (10:44)
[2019-04-18] MEDS: VORTIOXETINE HYDROBROMIDE 10 MG TABLET PO SCH (10:45)
--- NOTE | 2019-04-18 11:28 | P.PN ---
Subjective Progress Note Date: 04/18/19 58-year-old male morbidly obese one of Dr. 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 Later on found him to have slight difficulty moving his right side patient insisted not to come to the emergency room at this point. Finally made it home and noticed by his girlfriend to have severe expression aphasia and significant weakness on the right side still arguing about coming to [facility] apartment but he wants to rest. Finally patient agreed to come to [facility] from around 11:00 which was over 5 hours has from the time this started. Patient was seen and evaluated continue to have severe expression aphasia and right-sided weakness was not a candidate for TPA at this point. CT of the brain did not show any hemorrhage or bleed lab value did not show major abnormality. Neurology workweek to see the patient schedule an MRI of the brain today and patient was process for testing including echo, carotid ultrasound and his MRI. Patient be admitted to the hospital will consult cardiology as well for possible transesophageal echocardiogram continue neuro exam every 4 hours. 04/17: Patient is sitting up in a chair in no apparent distress today he denies any chest pain or shortness breath, his admitting around, is scheduled to go for ultrasound of the carotid as well as echocardiogram her on today, he is currently on Plavix 75 mg orally once every day as well as baby aspirin 81 mg once every day, he was seen in consultation by neurology, he would be seen in consultation by cardiology for possible KEYONNA. 04/18: Patient underwent KEYONNA today was negative for PFO or ASD no thrombus either we will continue current management double antibiotic therapy, continue with physical therapy and speech therapy evaluation hopefully will discharge patient home in the next 24 hours. Review of Systems CONSTITUTIONAL: Morbidly obese in no acute respiratory distress. EYES: No icterus sclerae, no conjunctivitis. EARS, NOSE, MOUTH, THROAT, and FACE: No sore throat, lymphadenopathy, carotid bruits or deformity. RESPIRATORY: No SOB cough or wheezes. CARDIOVASCULAR: No CP, Palpitation, PND, Orthopnea, or angina. GASTROINTESTINAL: No Abd pain, Nausea or vomiting, no Diarrhea or constipation, No GI Bleed, no distention or masses. GENITOURINARY: Negative for Hematuria or UTI, no kidney stones. INTEGUMENT/BREAST: Negative for any muscular injury with mild osteoarthritis.. HEMATOLOGIC/LYMPHATIC: Negative for bleed or purpura. MUSCULOSKELTAL: Negative for Myalgia, Mild arthralgia NEURLOGICAL: No seizure or syncope positive CVA with right-sided weakness and expression aphasia. BEHAVIORAL/PSYCH: Negative. ENDOCRINE: Negative. Objective - Vital Signs Vital signs: Vital Signs Temp 97.8 F 04/17/19 20:05 Pulse 78 04/18/19 08:32 Resp 18 04/18/19 08:32 BP 108/59 04/18/19 08:32 Pulse Ox 93 L 04/18/19 08:32 Intake & Output 04/17/19 04/18/19 04/18/19 18:59 06:59 18:59 Intake Total 677 50 Balance 677 50 Weight 119.2 kg Intake: IV 50 Oral 677 Other: # Voids 1 2 - Exam HEENT: Head is atraumatic, normocephalic, pupils were equal round reactive to light and accommodation extraocular muscle movement were intact, mucous membranes of the mouth are somewhat dry. Neck: Supple, no JVP, no carotid bruit lymphadenopathy. Chest: Decreased breath sounds at the bases, few rhonchi, no expiratory wheezes, no chest or tenderness, no intercostal retractions. Heart: First heart sound is depressed, second heart sounds normal, there is no gallop or murmur, no rubs or heaves. Abdomen: Soft, nontender, nondistended, positive bowel sounds. Neurologic: Patient is awake alert and oriented 3, cranial nerves III-12 appear grossly intact, minimal right-sided weakness and minimal expressive aphasia that has improved. - Labs CBC & Chem 7: 04/18/19 05:52 04/18/19 05:52 Labs: Abnormal Lab Results - Last 24 Hours (Table) 04/17/19 04/17/19 04/17/19 Range/Units 11:52 16:47 20:49 Plt Count (150-450) k/uL Chloride (98-107) mmol/L Glucose (74-99) mg/dL POC Glucose (mg/dL) 136 H 105 H 195 H (75-99) mg/dL 04/18/19 04/18/19 04/18/19 Range/Units 05:52 05:52 06:04 Plt Count 140 L (150-450) k/uL Chloride 108 H (98-107) mmol/L Glucose 159 H (74-99) mg/dL POC Glucose (mg/dL) 152 H (75-99) mg/dL Assessment and Plan Assessment: Assessment and Plan Plan: 1 left basal ganglial stroke. Continue aspirin 81 mg once every day, Plavix 75 mg orally once every day, continue Lipitor 40 mg orally once every day for secondary stroke prevention, patient underwent KEYONNA today that showed no evidence of PFO or ASD. Continue patient on physical therapy speech therapy and patient may be discharged home in the next 24 hours. 2 severe expression aphasia: From stroke affected the left mid cerebral artery, patient be seen speech continue neuro exam continue dual antiplatelet management and treatment also continue secondary prevention for stroke with statin, better control blood pressure, better control of his blood sugar. Patient will be referred early to speech, physical and occupational therapy also will be seen physiatry for possible inpatient rehab. 3 hypertension: Blood pressure remain well controlled on lisinopril HCT 20/12.5 mg daily and if needed smaller dose of calcium channel josh can be use. 4 type 2 diabetes: On the glipizide lower the dose to 10 mg twice a day continue Accu-Chek with sliding scales coverage and if can benefit from metformin 500 mg twice a day. 5 severe hyperlipidemia: Was switched from pravastatin to atorvastatin 40 mg daily. 6 severe depression: Has been on Trintellix 10 mg at bedtime. 7 high uric acid: With no gout flareup still on allopurinol 100 mg daily. 8 possible arrhythmia with nonsustained as a possibility patient will be on instrument repairer helper and if needed [facility] of instrument repairer helper should be done to exclude the possibility as a cause of stroke specially if there is no sign of PFO or ASD. 9 GI prophylaxis: Patient be on Pepcid 20 mg daily. 10 DVT prophylaxis: Early mobilization knee-high TEGAN hose and patient is on aspirin and Plavix for now. 11 home tomorrow morning.
--- NOTE | 2019-04-18 11:34 | P.PN ---
Subjective Progress Note Date: 04/18/19 Principal diagnosis: Stroke This is a pleasant 58-year-old gentleman with a past medical history significant for diabetes, hypertension, and dyslipidemia, who states that he does follow with Dr. Maty West the office as an outpatient, was admitted to the hospital with stroke. 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 He was trying to find the [place] but he was making multiple mistakes and choosing different warts. Beside that he noticed d ifficulty moving his right side including the right arm and right leg. Initially the patient was reluctant to come to the hospital finally he decided to come to the hospital. The working diagnosis was a stroke. The patient underwent a computed tomography scan of the brain which did not show any acute abnormalities. He underwent a CTA which was technically very difficult but there is no obvious abnormalities noted. The EKG showed sinus mechanism. The patient did not have any cardiac arrhythmia during his hospitalization. He does not recall having any symptoms of chest pain or chest discomfort, difficulty breathing, or feeling of heart racing or heart fluttering. He is not aware of any history of cardiac arrhythmia including atrial fibrillation and at home he is not on any oral anticoagulation. On follow-up with the patient today, 04/18/2019, the patient seems to be asymptomatic from the cardiac vascular standpoint overview. Overall he is feeling better. I did perform transesophageal echocardiogram earlier today and that showed no evidence of cardiac source of embolization. Objective - Vital Signs Vital signs: Vital Signs Temp 97.2 F L 04/18/19 11:26 Pulse 79 04/18/19 11:27 Resp 18 04/18/19 11:27 BP 117/74 04/18/19 11:26 Pulse Ox 92 L 04/18/19 11:26 Intake & Output 04/17/19 04/18/19 04/18/19 18:59 06:59 18:59 Intake Total 677 50 Balance 677 50 Weight 119.2 kg Intake: IV 50 Oral 677 Other: Voiding Method Toilet # Voids 1 2 - Constitutional General appearance: Present: no acute distress - Respiratory Respiratory: bilateral: CTA - Cardiovascular Rhythm: regular Heart sounds: normal: S1, S2 - Labs CBC & Chem 7: 04/18/19 05:52 04/18/19 05:52 Labs: Abnormal Lab Results - Last 24 Hours (Table) 04/17/19 04/17/19 04/17/19 Range/Units 11:52 16:47 20:49 Plt Count (150-450) k/uL Chloride (98-107) mmol/L Glucose (74-99) mg/dL POC Glucose (mg/dL) 136 H 105 H 195 H (75-99) mg/dL 04/18/19 04/18/19 04/18/19 Range/Units 05:52 05:52 06:04 Plt Count 140 L (150-450) k/uL Chloride 108 H (98-107) mmol/L Glucose 159 H (74-99) mg/dL POC Glucose (mg/dL) 152 H (75-99) mg/dL Assessment and Plan Assessment: Assessment #1 stroke with expressive aphasia and right-sided weakness #2 diabetes type 2 #3 hypertension #4 dyslipidemia Plan #1 the KEYONNA showed no cardiac source of embolization #2 continue the current medical regimen including dual antiplatelet therapy and statin #3 he might benefit from an event monitor as an outpatient to rule out cardiac arrhythmia
[2019-04-18 11:38] LABS: Glucose,Whole Blood 225 mg/dL (75-99)
--- NOTE | 2019-04-18 14:23 | ECHOF ---
Referral Reason:CVA MEASUREMENTS -------- HEIGHT: 182.9 cm WEIGHT: 119.7 kg BP: IVSd: 1.0 cm (0.6 - 1.1) LVIDd: 3.7 cm (3.9 - 5.3) LVPWd: 1.3 cm (0.6 - 1.1) IVSs: 1.6 cm LVIDs: 2.0 cm LVPWs: 2.1 cm LAESV Index (A-L): 11.63 ml/m Ao Diam: 3.2 cm (2.0 - 3.7) AV Cusp: 2.2 cm (1.5 - 2.6) LA Diam: 2.8 cm (2.7 - 3.8) MV EXCURSION: 20.130 mm (> 18.000) MV EF SLOPE: 120 mm/s (70 - 150) EPSS: 0.5 cm MV E Ryan: 0.82 m/s MV DecT: 220 ms MV A Ryan: 0.78 m/s MV E/A Ratio: 1.05 RAP: 5.00 mmHg RVSP: 13.89 mmHg FINDINGS -------- Sinus rhythm. This was a technically difficult study with suboptimal views. The left ventricular size is normal. There is borderline concentric left ventricular hypertrophy. Overall left ventricular systolic function is normal with, an EF between 55 - 60 %. The right ventricle is normal in size. Left atrium is normal size by volume. The right atrial size is normal. Lumason used Aortic valve is trileaflet and is mildly thickened. The mitral valve is normal. The mitral valve leaflets are mildly thickened. There is trace mitral regurgitation. Trace tricuspid regurgitation present. There is no evidence of pulmonary hypertension. The right ventricular systolic pressure, as measured by Doppler, is 13.89mmHg. There is no pulmonic regurgitation present. The aortic root size is normal. The inferior vena cava was not well visualized. There is no pericardial effusion. CONCLUSIONS -------- 1. Sinus rhythm. 2. This was a technically difficult study with suboptimal views. 3. The left ventricular size is normal. 4. There is borderline concentric left ventricular hypertrophy. 5. Overall left ventricular systolic function is normal with, an EF between 55 - 60 %. 6. The right ventricle is normal in size. 7. Left atrium is normal size by volume. 8. The right atrial size is normal. 9. Lumason used 10. Aortic valve is trileaflet and is mildly thickened. 11. The mitral valve is normal. 12. The mitral valve leaflets are mildly thickened. 13. There is trace mitral regurgitation. 14. Trace tricuspid regurgitation present. 15. There is no evidence of pulmonary hypertension. 16. The right ventricular systolic pressure, as measured by Doppler, is 13.89mmHg. 17. There is no pulmonic regurgitation present. 18. The aortic root size is normal. 19. The inferior vena cava was not well visualized. 20. There is no pericardial effusion. [employer] SALESPERSON: Michelle Paz RDCS
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
[2019-04-18 16:56] LABS: Glucose,Whole Blood 78 mg/dL (75-99)
[2019-04-18 20:47] LABS: Glucose,Whole Blood 174 mg/dL (75-99)
[2019-04-18] MEDS: CHOLECALCIFEROL 1,000 UNIT TAB PO SCH (21:43)
[2019-04-18] MEDS: LISINOPRIL-HCTZ 20-12.5 MG 1 EACH TAB PO SCH (21:44)
[2019-04-18] MEDS: ATORVASTATIN 80 MG TAB PO SCH (21:44)
[2019-04-18] MEDS: MONTELUKAST 10 MG TAB PO SCH (21:44)
[2019-04-18 22:15] VITALS: RESP 16
[2019-04-19] MEDS: glipiZIDE 10 MG TAB PO SCH (06:26)
[2019-04-19] MEDS: PANTOPRAZOLE 40 MG TABLET PO SCH (06:26)
[2019-04-19 06:35] LABS: Glucose,Whole Blood 136 mg/dL (75-99)
[2019-04-19 07:51] VITALS: BP 114/74; PULSE 79; TEMP 98.2
[2019-04-19] MEDS: CLOPIDOGREL 75 MG TAB PO SCH (08:09)
[2019-04-19] MEDS: ASPIRIN 325 MG TAB PO SCH (08:09)
[2019-04-19] MEDS: ALLOPURINOL 100 MG TAB PO SCH (08:09)
[2019-04-19] MEDS: VORTIOXETINE HYDROBROMIDE 10 MG TABLET PO SCH (08:17)
--- NOTE | 2019-04-19 08:57 | P.PN ---
Subjective Progress Note Date: 04/19/19 Principal diagnosis: Stroke This is a pleasant 58-year-old gentleman with a past medical history significant for diabetes, hypertension, and dyslipidemia, who states that he does follow with Dr. Maty West the office as an outpatient, was admitted to the hospital with stroke. 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 He was trying to find the [place] but he was making multiple mistakes and choosing different warts. Beside that he noticed d ifficulty moving his right side including the right arm and right leg. Initially the patient was reluctant to come to the hospital finally he decided to come to the hospital. The working diagnosis was a stroke. The patient underwent a computed tomography scan of the brain which did not show any acute abnormalities. He underwent a CTA which was technically very difficult but there is no obvious abnormalities noted. The EKG showed sinus mechanism. The patient did not have any cardiac arrhythmia during his hospitalization. He does not recall having any symptoms of chest pain or chest discomfort, difficulty breathing, or feeling of heart racing or heart fluttering. He is not aware of any history of cardiac arrhythmia including atrial fibrillation and at home he is not on any oral anticoagulation. On follow-up with the patient today, 04/19/2019, he is asymptomatic from the cardiac vascular standpoint of view. He denies any chest pain or chest discomfort, difficulty breathing, or heart racing or fluttering. The KEYONNA was performed yesterday and showed no evidence of cardiac source of embolization. From a cardiac vascular standpoint overview, the patient possibly can be discha rged home. Objective - Vital Signs Vital signs: Vital Signs Temp 98.2 F 04/19/19 07:49 Pulse 79 04/19/19 07:50 Resp 16 04/19/19 07:50 BP 114/74 04/19/19 07:49 Pulse Ox 92 L 04/19/19 07:49 Intake & Output 04/18/19 04/19/19 04/19/19 18:59 06:59 18:59 Intake Total 650 800 500 Output Total 1200 200 Balance -550 600 500 Weight 119 kg Intake: IV 50 20 Invasive Line 1 10 Invasive Line 2 10 Oral 600 800 480 Output: Urine 1200 200 Other: Voiding Method Toilet Toilet # Voids 2 2 # Bowel Movements 1 - Constitutional General appearance: Present: no acute distress - Respiratory Respiratory: bilateral: CTA - Cardiovascular Rhythm: regular Heart sounds: normal: S1 - Labs CBC & Chem 7: 04/18/19 05:52 04/18/19 05:52 Labs: Abnormal Lab Results - Last 24 Hours (Table) 04/18/19 04/18/19 04/19/19 Range/Units 11:36 20:46 06:18 POC Glucose (mg/dL) 225 H 174 H 136 H (75-99) mg/dL Assessment and Plan Assessment: Assessment #1 stroke with expressive aphasia and right-sided weakness #2 diabetes type 2 #3 hypertension #4 dyslipidemia Plan #1 the KEYONNA showed no cardiac source of embolization #2 continue the current medical regimen including dual antiplatelet therapy and statin #3 he might benefit from an event monitor as an outpatient to rule out cardiac arrhythmia
--- NOTE | 2019-04-19 10:41 | P.DS ---
Providers Date of admission: 04/16/19 14:39 Attending physician: Vineet Armijo Consults: 04/16/19 14:39 Consult Physician Routine Consulting Provider: Geena Strange Consult Reason/Comments: cva Do you want consulting provider notified?: Yes 04/16/19 16:22 Consult Physician Routine Consulting Provider: Abraham Martin Consult Reason/Comments: CVA will need KEYONNA Do you want consulting provider notified?: Yes Primary care physician: Reza Tavera [facility] Course: 58-year-old male morbidly obese one of Dr. 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 Later on found him to have slight difficulty moving his right side patient insisted not to come to the emergency room at this point. Finally made it home and noticed by his girlfriend to have severe expression aphasia and significant weakness on the right side still arguing about coming to [facility] apartment but he wants to rest. Finally patient agreed to come to [facility] from around 11:00 which was over 5 hours has from the time this started. Patient was seen and evaluated continue to have severe expression aphasia and right-sided weakness was not a candidate for TPA at this point. CT of the brain did not show any hemorrhage or bleed lab value did not show major abnormality. Neurology workweek to see the patient schedule an MRI of the brain today and patient was process for testing including echo, carotid ultrasound and his MRI. Patient be admitted to the hospital will consult cardiology as well for possible transesophageal echocardiogram continue neuro exam every 4 hours. 04/17: Patient is sitting up in a chair in no apparent distress today he denies any chest pain or shortness breath, his admitting around, is scheduled to go for ultrasound of the carotid as well as echocardiogram her on today, he is currently on Plavix 75 mg orally once every day as well as baby aspirin 81 mg once every day, he was seen in consultation by neurology, he would be seen in consultation by cardiology for possible KEYONNA. 04/18: Patient underwent KEYONNA today was negative for PFO or ASD no thrombus either we will continue current management double antibiotic therapy, continue with physical therapy and speech therapy evaluation hopefully will discharge patient home in the next 24 hours. Discharge diagnoses: 1. Left basal ganglia CVA. 2. severe expression aphasia 3 hypertension. 4 type 2 diabetes. 5 severe hyperlipidemia. 6 severe depression. 7 high uric acid Patient Condition at Discharge: Good Plan - Discharge Summary New Discharge Prescriptions: New Aspirin 325 mg PO DAILY tab glipiZIDE [Glucotrol] 10 mg PO AC-BID #60 tab Atorvastatin [Lipitor] 80 mg PO HS #30 tab Clopidogrel [Plavix] 75 mg PO DAILY #30 tab Pantoprazole [Protonix] 40 mg PO AC-BRKFST #30 tablet.dr Continue Montelukast [Singulair] 10 mg PO HS Cholecalciferol [Vitamin D3 (25 Mcg = 1000 Iu)] 5,000 unit PO HS Allopurinol [Zyloprim] 100 mg PO DAILY Lisinopril-Hctz 20-12.5 mg [Zestoretic 20-12.5] 1 tab PO HS glipiZIDE [Glucotrol] 10 mg PO TID Vortioxetine Hydrobromide [Trintellix] 10 mg PO DAILY Discontinued Lovastatin [Mevacor] 40 mg PO DAILY Naproxen Sodium [Aleve] 220 mg PO BID PRN PRN Reason: Pain Discharge Medication List Allopurinol [Zyloprim] 100 mg PO DAILY 06/17/16 [History] Cholecalciferol [Vitamin D3 (25 Mcg = 1000 Iu)] 5,000 unit PO HS 06/17/16 [History] Montelukast [Singulair] 10 mg PO HS 06/17/16 [History] Lisinopril-Hctz 20-12.5 mg [Zestoretic 20-12.5] 1 tab PO HS 03/27/19 [History] glipiZIDE [Glucotrol] 10 mg PO TID 03/27/19 [History] Vortioxetine Hydrobromide [Trintellix] 10 mg PO DAILY 04/16/19 [History] Aspirin 325 mg PO DAILY tab 04/19/19 [Rx] Atorvastatin [Lipitor] 80 mg PO HS #30 tab 04/19/19 [Rx] Clopidogrel [Plavix] 75 mg PO DAILY #30 tab 04/19/19 [Rx] Pantoprazole [Protonix] 40 mg PO AC-BRKFST #30 tablet. 04/19/19 [Rx] glipiZIDE [Glucotrol] 10 mg PO AC-BID #60 tab 04/19/19 [Rx] Follow up Appointment(s)/Referral(s): Reza Tavera DO [Primary Care Provider] - 1-2 days Discharge Disposition: HOME WITH HOME HEALTH SERVICES
[2019-04-19 11:49] LABS: Glucose,Whole Blood 157 mg/dL (75-99)
== END 2019-04-19 13:35 | disposition home health service (06) | DRG 65 ==
LOC: EC 11:41 → 3SCARD 14:39
PROVIDERS: ADMIT Internal Medicine Geriatric Medicine; ATTEND Internal Medicine Geriatric Medicine
DX: I63.89 Other cerebral infarction (principal); G81.91 Hemiplegia, unspecified affecting right dominant side; E11.69 Type 2 diabetes mellitus with other specified complication; E66.01 Morbid (severe) obesity due to excess calories; E78.5 Hyperlipidemia, unspecified; F32.9 Major depressive disorder, single episode, unspecified; I10 Essential (primary) hypertension; R29.709 NIHSS score 9; R40.2143 Coma scale, eyes open, spontaneous, at hospital admission; R40.2363 Coma scale, best motor response, obeys commands, at hospital admission; R40.2253 Coma scale, best verbal response, oriented, at hospital admission; M19.90 Unspecified osteoarthritis, unspecified site; R47.01 Aphasia; E79.0 Hyperuricemia without signs of inflammatory arthritis and tophaceous disease; Z88.0 Allergy status to penicillin; Z90.89 Acquired absence of other organs; Z98.890 Other specified postprocedural states; Z82.61 Family history of arthritis; Z88.2 Allergy status to sulfonamides; Z79.02 Long term (current) use of antithrombotics/antiplatelets; Z79.82 Long term (current) use of aspirin; Z79.84 Long term (current) use of oral hypoglycemic drugs; Z79.899 Other long term (current) drug therapy; Z82.49 Family history of ischemic heart disease and other diseases of the circulatory system; Z83.3 Family history of diabetes mellitus
CPT/HCPCS: 36415; 70450; 70496; 70498; 70553; 80053; 80061; 82550; 82553; 84484; 85025; 85610; 85730; 93005; 93306; 93312; 93320; 93325; 96360; 96361; 99291

== ENCOUNTER → 2019-05-08 | Outpatient (CLI) | payer OTHER | END | disposition home or self-care (01) | LOC: RADMRIMAIN 13:41 | PROVIDERS: ATTEND Family Medicine | DX: Z53.9 Procedure and treatment not carried out, unspecified reason (principal) ==

== ENCOUNTER → 2022-06-05 | Outpatient (CLI) | payer BC ==
--- NOTE | 2022-06-05 12:26 | XR ---
EXAMINATION TYPE: XR foot complete LT DATE OF EXAM: 06/05/2022 COMPARISON: NONE HISTORY: Pain TECHNIQUE: Three views are submitted. FINDINGS: The osseous structures are intact. There is no acute fracture or dislocation. Mild hypertrophic ar thropathy first MTP. Spur along the base of the fifth metatarsal. Calcaneal spurs are also noted. The re are vascular calcifications. IMPRESSION: 1. There is a small spur extending from the base of the fifth metatarsal correlate clinically.
== END | disposition home or self-care (01) ==
LOC: RADXRMAIN 11:37
PROVIDERS: ATTEND Family Medicine
DX: M77.42 Metatarsalgia, left foot (principal); M77.32 Calcaneal spur, left foot

== ENCOUNTER 2023-05-02 11:49 | Emergency (ER) | payer OTHER, BC ==
[2023-05-02 12:01] VITALS: TEMP 98.2
[2023-05-02] MEDS ORDERED: SODIUM CHLORIDE 0.9% 1,000 ML IV STA (12:09)
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
[2023-05-02 12:48] LABS: INR 0.9 (<1.2); Partial Thromboplastin Time 24.8 sec (22.0-30.0); Prothrombin Time 9.8 sec (9.0-12.0)
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
[2023-05-02 12:51] LABS: Basophils % (A) 0 %; Eosinophils # (A) 0.1 k/uL (0-0.7); Eosinophils % (A) 1 %; HCT 45.2 % (39.0-53.0); HGB 15.4 gm/dL (13.0-17.5); Lymphocytes # (A) 1.3 k/uL (1.0-4.8); Lymphocytes % (A) 20 %; MCH 30.4 pg (25.0-35.0); MCHC 34.2 g/dL (31.0-37.0); MCV 89.1 fL (80.0-100.0); Mean Platelet Volume 8.7; Monocytes # (A) 0.3 k/uL (0-1.0); Monocytes % (A) 5 %; Neutrophils # (A) 4.8 k/uL (1.3-7.7); Neutrophils % (A) 73 %; Platelet Count 151 k/uL (150-450); RBC 5.08 m/uL (4.30-5.90); RDW 12.5 % (11.5-15.5); WBC 6.6 k/uL (3.8-10.6)
[2023-05-02 13:07] LABS: ALT 36 U/L (4-49); AST 34 U/L (17-59); African American GFR (CKD) >90 (>60 ml/min/1.73 sqM); Albumin 4.1 g/dL (3.5-5.0); Alkaline Phosphatase 79 U/L (38-126); Anion Gap 6 mmol/L; Blood Urea Nitrogen 16 mg/dL (9-20); Calcium 9.3 mg/dL (8.4-10.2); Carbon Dioxide 31 mmol/L (22-30); Chloride 102 mmol/L (98-107); Glucose 155 mg/dL (74-99); Non-African American GFR(CKD) 81 (>60 ml/min/1.73 sqM); Potassium 4.3 mmol/L (3.5-5.1); Sodium 139 mmol/L (137-145); Total Bilirubin 0.5 mg/dL (0.2-1.3)
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
[2023-05-02 14:24] LABS: Appearance,Urine Clear (Clear); Bilirubin,Urine Negative (Negative); Blood,Urine Negative (Negative); Color,Urine Light Yellow; Glucose,Urine (UA) Negative (Negative); Ketones,Urine Negative (Negative); Leukocyte Esterase,Urine Small (Negative); Mucus,Urine Rare /hpf; Nitrite,Urine Negative (Negative); Protein,Urine Negative (Negative); RBC,Urine <1 /hpf (0-5); Specific Gravity,Urine 1.037 (1.001-1.035); Urobilinogen,Urine <2.0 mg/dL (<2.0); WBC,Urine 1 /hpf (0-5)
[2023-05-02 14:54] VITALS: BP 122/70; PULSE 78; RESP 18
== END 2023-05-02 14:53 | disposition other institution (70) ==
LOC: EC 11:49
DX: S30.1XXA Contusion of abdominal wall, initial encounter (principal); N40.0 Benign prostatic hyperplasia without lower urinary tract symptoms; E11.9 Type 2 diabetes mellitus without complications; I10 Essential (primary) hypertension; M19.90 Unspecified osteoarthritis, unspecified site; Z79.1 Long term (current) use of non-steroidal anti-inflammatories (NSAID); Z79.899 Other long term (current) drug therapy; Z88.0 Allergy status to penicillin; Z88.2 Allergy status to sulfonamides; Z79.82 Long term (current) use of aspirin; Z79.84 Long term (current) use of oral hypoglycemic drugs; V89.2XXA Person injured in unspecified motor-vehicle accident, traffic, initial encounter; Y92.411 Interstate highway as the place of occurrence of the external cause
CPT/HCPCS: 36415; 86900; 86901; 80053; 85025; 85610; 85730; 86850; 81001; 71045; 74177; 99285; 96360; Q9967

== ENCOUNTER → 2024-07-08 | Outpatient (CLI) | payer OTHER | END | disposition home or self-care (01) | LOC: LABPRL 09:25 | PROVIDERS: ATTEND Family Medicine | DX: E11.9 Type 2 diabetes mellitus without complications (principal) | CPT/HCPCS: 83036 ==